=== PATIENT | female | born 1985 | race Caucasian/White ===

== ENCOUNTER 2021-08-02 17:54 | Emergency (ER) | payer OTHER ==
--- NOTE | 2021-08-02 18:00 | ERPHSYRPT ---
- History of Present Illness Time Seen by Provider: 08/02/21 18:00 Source: patient Exam Limitations: no limitations Physician History: This is a 36-year-old white female who states that she woke up a week ago with pain in her right side of her neck and shoulder. She did not suffer any kind of acute traumatic injury. She continued to go to work during the last week but today the pain was worse. She did take some medication prior to arrival. It was nonnarcotic. It did not seem to help much. She was concerned and came in for evaluation. Patient did not have any strokelike symptoms. She does not have chest pain or shortness of breath. Patient has a history of hypertension. Patient did go to a massage therapist and after the treatment the pain was even worse. Timing/Duration: week(s) (1) Severity: mild (To moderate) Modifying Factors: Improves With: movement Associated Symptoms: denies symptoms Allergies/Adverse Reactions: No Known Drug Allergies Allergy (Unverified 08/02/21 18:05) Home Medications: Norgestimate-Ethinyl Estradiol [Ortho Tri-Cyclen] 1 tab PO DAILY 04/29/16 [History] Amlodipine Besylate 5 mg [Norvasc 5 mg] 5 mg PO DAILY 08/02/21 [History] Azelastine Nasal [Astelin Nasal] 1 spray IH DAILY 08/02/21 [History] Doxycycline Hyclate 1 tab PO DAILY 08/02/21 [History] Fluticasone Furoate [Arnuity Ellipta] 50 mcg IH DAILY 08/02/21 [History] Loratadine [Claritin] 5 mg PO DAILY 08/02/21 [History] Modafinil 100 mg [Provigil 100MG Tablet] 100 mg PO DAILY 08/02/21 [History] Montelukast Sodium 10 mg [Singulair 10 MG] 10 mg PO DAILY 08/02/21 [History] Spironolactone 100 mg PO DAILY 08/02/21 [History] Hx Tetanus, Diphtheria Vaccination/Date Given: Yes Hx Influenza Vaccination/Date Given: No Hx Pneumococcal Vaccination/Date Given: No Travel Risk - International Travel Have you traveled outside of the country in past 3 weeks: No - Coronavirus Screening Are you exhibiting any of the following symptoms?: No Close contact with a COVID-19 positive Pt in past 14-21 Days: No - Review of Systems Constitutional: No Symptoms Eyes: No Symptoms Ears, Nose, & Throat: No Symptoms Respiratory: No Symptoms Cardiac: No Symptoms Abdominal/Gastrointestinal: No Symptoms Genitourinary Symptoms: No Symptoms Musculoskeletal: Neck Pain Skin: No Symptoms Neurological: No Symptoms Psychological: No Symptoms Endocrine: No Symptoms Hematologic/Lymphatic: No Symptoms Immunological/Allergic: No Symptoms All Other Systems: Reviewed and Negative - Past Medical History Pertinent Past Medical History: Yes Cardiac History: Hypertension - Past Surgical History Past Surgical History: Yes - Social History Smoking Status: Never smoker Exposure to second hand smoke: Yes Drug Use: marijuana Patient Lives Alone: No - Nursing Vital Signs Nursing Vital Signs: Initial Vital Signs Temperature 97.5 F 08/02/21 17:58 Pain Scale Pain Intensity 8 - Physical Exam General Appearance: no apparent distress, alert, anxiety, obese Eye Exam: PERRL/EOMI, eyes nml inspection Ears, Nose, Throat Exam: normal ENT inspection, moist mucous membranes Neck Exam: normal inspection, non-tender, supple, full range of motion Respiratory Exam: normal breath sounds, lungs clear, airway intact, No chest tenderness, No respiratory distress Gastrointestinal/Abdomen Exam: No tenderness Pelvic Exam: not done Rectal Exam: not done Back Exam: muscle spasm (Right trapezius muscle region), other (Tenderness is in the distribution of the right trapezius muscle.) Extremity Exam: normal inspection, normal range of motion, pelvis stable Neurologic Exam: alert, oriented x 3, cooperative, wet cleaner machine II-XII nml as tested, normal mood/affect, nml cerebellar function, nml station & gait, sensation nml Skin Exam: normal color, warm, dry Lymphatic Exam: No adenopathy SpO2 Interpretation: normal O2 Delivery: Room Air - Course Nursing assessment & vital signs reviewed: Yes Ordered Tests: Active Orders 24 hr Category Date Time Status CERVICAL SPINE (2 OR 3 VIEW) Stat Exams 08/02/21 19:04 Taken - Progress Progress: unchanged, pain not gone completely Progress Note: 08/02/21 19:23 X-ray of cervical spine reveals no acute fracture or subluxation. Counseled pt/family regarding: diagnosis, need for follow-up, rad results - Departure Departure Disposition: Home Clinical Impression: Musculoskeletal pain Condition: Stable Critical Care Time: No Referrals: REX,KEMAR, MD [Primary Care Provider] - Follow up/PCP as directed Additional Instructions: May alternate ice and heat to area. May apply topical pain patches and icy hot to area as needed. Follow-up with your primary care physician for further management. Forms: Work/School Release Form Prescriptions: Oxycodone HCl/Acetaminophen [Percocet 5-325 mg Tablet] 1 each PO Q8H PRN PRN #8 tablet MDD 3 PRN Reason: Pain Cyclobenzaprine HCl 10 mg [Cyclobenzaprine 10 MG] 10 mg PO TID #10 tablet Prednisone 10 mg [Deltasone 10 mg] 10 mg PO TID #12 tablet
[2021-08-02 18:14] VITALS: BP 128/82; PULSE 76; O2SAT 100
[2021-08-02] MEDS ORDERED: DELTASONE 20 MG ONE (19:45)
[2021-08-02] MEDS ORDERED: PERCOCET TABLET 5/325MG ONE (19:45)
[2021-08-02] MEDS: DELTASONE 20 MG PO ONE (19:47)
[2021-08-02] MEDS: PERCOCET TABLET 5/325MG PO STA (19:50)
[2021-08-02] MEDS: Norflex 100 MG Tablet PO ONE (20:05)
[2021-08-02] MEDS ORDERED: Cyclobenzaprine 10 MG ONE (20:05)
[2021-08-02] MEDS: Cyclobenzaprine 10 MG PO ONE (20:08)
--- NOTE | 2021-08-03 08:42 | XRAY ---
Indication: Neck and right arm pain. No known injury. Comparison: None 4 view cervical spine demonstrates mild lordotic reversal centered at C5 and incompletely visualized thoracic dextroscoliosis. No other bony, articular, or soft tissue abnormalities.
== END 2021-08-02 20:11 | disposition home or self-care (01) ==
LOC: ED 17:54
DX: M54.2 Cervicalgia (principal); M25.511 Pain in right shoulder; I10 Essential (primary) hypertension
CPT/HCPCS: 72040; 99284; A9270-GY

== ENCOUNTER 2021-08-07 16:51 | Emergency (ER) | payer OTHER ==
[2021-08-07] MEDS ORDERED: Hydromorphone 1 mg/ml Injection IM ONE (18:23)
--- NOTE | 2021-08-07 18:23 | ERPHSYRPT ---
- History of Present Illness Time Seen by Provider: 08/07/21 17:35 Source: patient Exam Limitations: no limitations Patient Subjective Stated Complaint: R neck and shoulder pain Triage Nursing Assessment: pt to ED c/o R neck and shoulder pain x approx 2 weeks. pt states she was in this ED Sunday and [facility] Sunday but pain has been persistant even with prescriptions of muscle relaxers and steroids. rates 6/10 pain now. full ROM. denies injury 2 weeks ago, states "I thought maybe I slept on it wrong but it never got better." Physician History: Patient is a 36-year-old white female patient of Dr. Nickerson who presents with a complaint of neck and upper back pain which radiates down her right arm to the fingers. She was seen in our ER on Sunday and was given prednisone Percocet and Flexeril none of which helped she then went to [facility] and was administered a CT of the neck and thoracic spine there which showed some degenerative disc disease but no specific nerve root impingement etc. she presents tonight just for some pain relief. Occurred: other (2 weeks ago) Method of Injury: unknown Quality: intermittent, aching, throbbing Severity of Pain-Max: moderate Severity of Pain-Current: moderate Extremities Pain Location: shoulder: right, arm: right, elbow: right, forearm: right, wrist: right, hand: right Modifying Factors: Improves With: movement Associated Symptoms: none Allergies/Adverse Reactions: No Known Drug Allergies Allergy (Verified 08/07/21 17:33) Home Medications: Norgestimate-Ethinyl Estradiol [Ortho Tri-Cyclen] 1 tab PO DAILY 04/29/16 [History] Amlodipine Besylate 5 mg [Norvasc 5 mg] 5 mg PO DAILY 08/02/21 [History] Azelastine Nasal [Astelin Nasal] 1 spray IH DAILY 08/02/21 [History] Doxycycline Hyclate 1 tab PO DAILY 08/02/21 [History] Fluticasone Furoate [Arnuity Ellipta] 50 mcg IH DAILY 08/02/21 [History] Loratadine [Claritin] 5 mg PO DAILY 08/02/21 [History] Modafinil 100 mg [Provigil 100MG Tablet] 100 mg PO DAILY 08/02/21 [History] Montelukast Sodium 10 mg [Singulair 10 MG] 10 mg PO DAILY 08/02/21 [History] Spironolactone 100 mg PO DAILY 08/02/21 [History] Hx Tetanus, Diphtheria Vaccination/Date Given: Yes Hx Influenza Vaccination/Date Given: Yes Hx Pneumococcal Vaccination/Date Given: No Immunizations Up to Date: Yes Travel Risk - International Travel Have you traveled outside of the country in past 3 weeks: No - Coronavirus Screening Are you exhibiting any of the following symptoms?: No Close contact with a COVID-19 positive Pt in past 14-21 Days: No - Vaccine Status Have you recieved a Covid-19 vaccination: Yes Veterinary Attendant: Moderna - Vaccination Dates Date of 2cond Vaccination (if applicable): november - Review of Systems Constitutional: No Fever, No Chills Eyes: No Symptoms Ears, Nose, & Throat: No Symptoms Respiratory: No Cough, No Dyspnea Cardiac: No Chest Pain, No Edema, No Syncope Abdominal/Gastrointestinal: No Abdominal Pain, No Nausea, No Vomiting, No Diarrhea Genitourinary Symptoms: No Dysuria Musculoskeletal: Arthralgias, Back Pain, Neck Pain Skin: No Rash Neurological: No Dizziness, No Focal Weakness, No Sensory Changes Psychological: No Symptoms Endocrine: No Symptoms All Other Systems: Reviewed and Negative - Past Medical History Pertinent Past Medical History: Yes Cardiac History: Hypertension Respiratory History: Sleep Apnea Other Medical History: CPAP - Past Surgical History Past Surgical History: Yes - Social History Smoking Status: Never smoker Exposure to second hand smoke: Yes Drug Use: none Patient Lives Alone: No - Female History Hx Last Menstrual Period: 3 weeks ago Hx Now: No - Nursing Vital Signs Nursing Vital Signs: Initial Vital Signs Temperature 97.6 F 08/07/21 17:22 Pulse Rate 60 08/07/21 17:22 Respiratory Rate 20 08/07/21 17:22 Blood Pressure 149/89 08/07/21 17:22 O2 Sat by Pulse Oximetry 99 08/07/21 17:22 Pain Scale Pain Intensity 6 - Physical Exam General Appearance: mild distress, alert Eyes, Ears, Nose, Throat Exam: moist mucous membranes Neck Exam: non-tender, supple Cardiovascular/Respiratory Exam: chest non-tender, normal breath sounds, regular rate/rhythm, no respiratory distress Abdominal Exam: non-tender, No guarding Back Exam: normal inspection, No vertebral tenderness Shoulder Exam: normal inspection, non-tender, no evidence of injury, normal ROM, pain Elbow/Forearm Exam: normal inspection, non-tender, no evidence of injury, normal ROM, pain Wrist Exam: normal inspection, non-tender, no evidence of injury, pain Hand Exam: normal inspection, non-tender, no evidence of injury, normal ROM Neuro/Tendon Exam: normal sensation, normal motor functions Mental Status Exam: alert, oriented x 3, cooperative Skin Exam: normal color, warm, dry SpO2: 99 - Course Nursing assessment & vital signs reviewed: Yes - Progress Progress: unchanged Progress Note: 08/07/21 18:[address] scan and ER records from [facility] reviewed those as mentioned above they showed degenerative disc changes but no specific nerve root impingement or stenosis of the spinal cord. She is going to follow-up as soon as she can with Dr. Sheyla renner and see if she can possibly obtain an MRI. - Departure Departure Disposition: Home Clinical Impression: Cervical radiculopathy Condition: Stable Critical Care Time: No Referrals: KEMAR GOODMAN MD [Primary Care Provider] - Follow up/PCP as directed Instructions: Radiculopathy (DC) Prescriptions: Gabapentin 100 mg [Neurontin 100 MG] 100 mg PO TID 10 Days #30 cap
[2021-08-07] MEDS ORDERED: Hydromorphone 1 mg/ml Injection ONE (18:26)
[2021-08-07 18:51] VITALS: BP 118/65; PULSE 90; O2SAT 97
== END 2021-08-07 18:52 | disposition home or self-care (01) ==
LOC: ED 16:51
DX: M54.12 Radiculopathy, cervical region (principal); M54.50 Low back pain, unspecified; I10 Essential (primary) hypertension
CPT/HCPCS: 96372; 99283; J1170